=== PATIENT | female | born 1990 | race Caucasian/White ===

== ENCOUNTER 2017-10-19 19:04 | Emergency (ER) | payer OTHER, SELFPAY ==
[2017-10-19] MEDS ORDERED: predniSONE 20 MG TAB ONE (19:28)
--- NOTE | 2017-10-19 19:51 | RAD ---
CHEST TWO VIEWS: 10/19/17 HISTORY: Shortness of breath. History of asthma. COMPARISON: 05/15/14 study. Heart size and mediastinum are within normal limits. The lungs are clear of infiltrates. No bony find ings. IMPRESSION: No active intrathoracic disease. POS: [facility]
[2017-10-19] MEDS ORDERED: Albuterol Sulfate 2.5 mg/3 ml Neb ONE (19:56)
== END 2017-10-19 20:31 | disposition home or self-care (01) ==
LOC: ERS 19:04
DX: J45.901 Unspecified asthma with (acute) exacerbation (principal); J20.9 Acute bronchitis, unspecified; F17.210 Nicotine dependence, cigarettes, uncomplicated
CPT/HCPCS: 71020; 87804; 94640; J7506; J7611; J7620

== ENCOUNTER 2019-02-03 13:49 | Emergency (ER) | payer SELFPAY ==
[2019-02-03 14:29] LABS: #Basophils 0.1 thou/uL (0.0-0.2); #Eosinphils 0.3 thou/uL (0.0-0.7); #Lymphocytes 1.9 thou/uL (1.20-3.40); #Monocytes 1.3 thou/uL (0.11-0.59); #Neutrophils 7.6 thou/uL (1.40-6.50); %Basophils 0.5 % (0.0-1.0); %Eosinophils 2.3 % (0.0-10.0); %Lymphocytes 16.8 % (21.0-51.0); %Monocytes 11.6 % (0.0-10.0); %Neutrophils 68.7 % (42.0-75.0); Hemoglobin 13.4 g/dL (12.0-16.0); Mean Corpuscular HGB CONC 34.4 g/dL (32.0-36.0); Mean Corpuscular Hemoglobin 28.8 pg (27.0-31.0); Mean Corpuscular Volume 83.8 fL (78.0-98.0); Mean Platelet Volume 7.5 fL (7.4-10.4); Platelet Count 256 thou/uL (130-400); RBC Distribution Width 11.5 % (11.5-14.5); Red Blood Cell (RBC) Count 4.66 mill/uL (4.20-5.40); White Blood Cell (WBC) Count 11.1 thou/uL (4.8-10.8)
[2019-02-03 14:40] LABS: Bilirubin Negative (Negative); Blood, Urine Trace (Negative); Clarity CLOUDY (Clear); Glucose, Urine (Dipstick) Negative (Negative); Leukocyte Moderate (Negative); Nitrite Negative (Negative); Protein, Urine (Dipstick) Trace mg/dL (Neg-Trace); Specific Gravity, Urine 1.015 (1.002-1.036); Urobilinogen 0.2 mg/dL (0.2-1.0)
[2019-02-03 14:42] LABS: Bacteria/HPF Rare-Few HPF (None Seen); Pathc Cast-AUWi Flag 1.49 (0-2.49); Squamous Epithelial 0-3 HPF (0-3)
[2019-02-03] MEDS ORDERED: Fentanyl 100 MCG/2 ML VIAL ONE (14:42)
[2019-02-03] MEDS ORDERED: Ketorolac Tromethamine 30 MG/ML VIAL ONE (14:43)
[2019-02-03] MEDS ORDERED: Ondansetron PF 4 MG/2 ML Vial ONE (14:43)
[2019-02-03 14:44] LABS: Hyaline Casts/LPF 0-3 HYALINE CAST LPF (0-3 Hyaline); Pregnancy Test - Urine (BHCG) Negative (Negative); Pregu Control Background? CLEAR/WHITE (CLR/WHITE); Pregu Control Bar Appear? YES (CONTROL BAR); Specific Gravity 1.015 (1.002-1.036)
[2019-02-03 14:49] LABS: BHCG - Serum Negative (NEGATIVE); Pregs Control Background? CLEAR/WHITE (CLR/WHITE); Pregs Control Bar Appear? YES (CONTROL BAR)
[2019-02-03 14:52] LABS: ALT (SGPT) 15 U/L (8-55); AST (SGOT) 12 U/L (5-34); Albumin 3.7 g/dL (3.5-5.0); Alkaline Phosphatase 76 U/L (40-150); Anion Gap 14 mmol/L (10-20); BUN (Urea Nitrogen) 7 mg/dL (7.0-18.7); Bilirubin, Total 0.8 mg/dL (0.2-1.2); Calc. Creatinine Clearance 0 mL/min (70-130); Calcium 9.4 mg/dL (7.8-10.44); Carbon Dioxide 23 mmol/L (22-29); Chloride 101 mmol/L (98-107); Estimated GFR-MDRD 74; Globulin 3.5 g/dL (2.4-3.5); Glucose 87 mg/dL (70-105); Lipase Less than 4 U/L (8-78); Potassium 3.9 mmol/L (3.5-5.1); Protein, Total 7.2 g/dL (6.0-8.3); Sodium 134 mmol/L (136-145)
--- NOTE | 2019-02-03 15:16 | CT ---
EXAM: CT Stone Protocol PROVIDED CLINICAL HISTORY: Right flank pain COMPARISON: None FINDINGS: The visualized lung bases are free of significant opacity. Changes of prior cholecystectomy are seen. There is no evidence for urinary tract calculi or hydronep hrosis. Minimal perinephric fat stranding on the right. The solid abdominal organs are suboptimally evaluated in the absence of IV contrast but demonstrate an otherwise unremarkable unenhanced CT appea kermit. There is no bowel dilatation, additional inflammatory fat stranding or free air apparent. There is a small amount of free pelvic fluid, the density of which suggests blood products. The appendix appears normal. Bilateral tubal ligation clips are seen. The osseous structures demonstrate no concerning lytic or blastic lesions. IMPRESSION: 1. No evidence for urinary tract calculi or hydronephrosis. Minimal right perinephric fat stranding. Correlate with concerns for pyelonephritis. 2. Small amount of complex fluid or blood products within the pelvis which may reflect ruptured physi ologic adnexal cyst.
[2019-02-03] MEDS ORDERED: cefTRIAXone\\ROCEPHIN 1 GM VIAL ONE (15:24)
== END 2019-02-03 16:05 | disposition home or self-care (01) ==
LOC: ERS 13:49
DX: N10 Acute pyelonephritis (principal); N83.299 Other ovarian cyst, unspecified side; J45.909 Unspecified asthma, uncomplicated; F17.210 Nicotine dependence, cigarettes, uncomplicated; Z79.51 Long term (current) use of inhaled steroids
CPT/HCPCS: 36415; 74176; 80053; 81003; 81015; 81025; 83690; 84703; 85025; 87086; 96361; 96365; 96375; J0696; J1885; J2405; J3010

== ENCOUNTER 2019-09-02 09:08 | Emergency (ER) | payer SELFPAY ==
[2019-09-02] MEDS ORDERED: Ketorolac Tromethamine 60 MG/2 ML VIAL ONE (09:31)
[2019-09-02] MEDS ORDERED: Dexamethasone 10 MG/ML VIAL ONE (09:31)
== END 2019-09-02 09:39 | disposition home or self-care (01) ==
LOC: SCSER 09:08
DX: J02.9 Acute pharyngitis, unspecified (principal); F17.210 Nicotine dependence, cigarettes, uncomplicated
CPT/HCPCS: 96372; 99282; J1100; J1885